=== PATIENT | female | born 1975 | race Caucasian/White ===

== ENCOUNTER 2024-12-21 12:41 | Emergency (ER) | payer OTHER, SELFPAY ==
--- NOTE | ~2024-12-21 | XR_ITS ---
CHEST RADIOGRAPH, PA AND LATERAL CLINICAL HISTORY: chest pain . COMPARISON: None available TECHNIQUE: PA and lateral views of the chest. FINDINGS The cardiomediastinal silhouette is unremarkable. The lungs are clear. Visualized osseous structures and soft tissues are unremarkable. IMPRESSION: No focal infiltrate or effusion. Reviewed, dictated and finalized at location A.
[2024-12-21 12:44] VITALS: BP 147/87; PULSE 91; RESP 18; TEMP 36.4; O2SAT 100
--- NOTE | 2024-12-21 12:48 | ECG_ITS ---
Test Date: 2024-12-21 13:13:04 Measurements Intervals [place] Rate: 77 P: 80 [place]: 153 QRS: 54 QRSD: 70 T: 75 QT: 367 QTc: 416 Interpretive Statements SINUS RHYTHM POSSIBLE LEFT ATRIAL ENLARGEMENT CANNOT R/O SEPTAL INFARCT, AGE INDETERMINATE BORDERLINE ST ABNORMALITY- INFERIOR LEADS ABNORMAL ECG No previous ECG available for comparison Electronically Signed On 12-21-2024 13:13:57 CDT by Donald Dior D.O.
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
--- OUTSIDE RECORDS SUMMARY | 2024-12-21 13:31 | XMS_ITS | Referral Summary ---
Author Organization [facility] Address [address] [place] [address] Care Team Providers Care Eight Arm Operator Name Role Phone No, Physician Primary Care Provider [phone] Allergies Active Allergy Reactions Criticality Noted Date Comments Cyclobenzaprine Quetiapine Medications acetaminophen-c odeine (TYLENOL with CODEINE #3) 300-30 mg per tablet Take 1-2 tablets by mouth every 4 (four) hours as needed for pain (1 tablet for mild to moderate pain or 2 tablets for severe pain). 20 tablet 11/19/2017 Active methocarbamol (ROBAXIN) 500 mg tablet Take 1 tablet (500 mg total) by mouth 3 (three) times a day. 30 tablet 11/24/2017 Active naproxen (ANAPROX DS) 550 mg tablet Take 1 tablet (550 mg total) by mouth 2 (two) times a day with meals 21 tablet 12/24/2020 Active predniSONE (DELTASONE) 10 mg tablet Take 2 tablets (20 mg) by mouth daily 10 tablet 12/24/2020 Active ibuprofen (ADVIL,MOTRIN) 600 mg tablet Take 1 tablet (600 mg total) by mouth every 6 (six) hours as needed for pain 20 tablet 08/16/2024 Active Active Problems Problem Noted Date Diagnosed Date Tendinitis of right forearm 12/24/2020 Social History Tobacco Use Types Packs/Day Years Used Date Smoking Tobacco: Every Day Cigarettes Smokeless Tobacco: Never Tobacco Cessation:Ready to Q uit: Not Asked; Counseling Given: Not Answered Alcohol Use Standard Drinks/Week Comments No 0 (1 standard drink = 0.6 oz pur e alcohol) Personal Safety Answer Date Recorded Have you ever been in or are you currently in a harmful physical or emotional relationship or is someone making you feel afraid or unsafe? 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 Gender Identity Not on file Sexual Orientation Not on file Last Filed Vital Signs Vital Sign Reading Time Taken Comments Blood Pressure 141/74 08/16/2024 11:55 AM BLENDING LINE ATTENDANT Pulse 92 08/16/2024 11:55 AM BLENDING LINE ATTENDANT Temperature 36.9 C (98.4 F) 12/24/2020 7:48 PM CDT Respiratory Rate 16 08/16/2024 11:55 AM BLENDING LINE ATTENDANT Oxygen Saturation 100% 08/16/2024 11:55 AM BLENDING LINE ATTENDANT Inhaled Oxygen Concentration - - Weight 54.4 kg (120 lb) 12/24/2020 7:48 PM CDT Height 180.3 cm (5' 11 ) 12/24/2020 7:48 PM CDT Body Mass Index 16.74 12/24/2020 7:48 PM CDT Plan of Treatment Not on file Insurance [facility] Care Teams Eight Arm Operator Relationship Specialty Start Date End Date No, Physician PCP - General 08/16/24
--- OUTSIDE RECORDS SUMMARY | 2024-12-21 13:31 | XMS_ITS | Clinical Summary ---
Author Organization [facility] Address [address] [place] [address] Care Team Providers Care Campaign Management Senior Manager Name Role Phone No, Physician Primary Care Provider [phone] Allergies Active Allergy Reactions Criticality Noted Date [...] Diagnosed Date Tendinitis of right forearm 12/24/2020 Surgical History Surgery Date Site/Laterality Comments OTHER SURGICAL HISTORY head surgery Medical History Medical History Date Comments Arthritis Arthritis; Comme nts: [facility] 11/20/2015 - Asthma Asthma; Comments : [facility] 11/20/2015 - Social History Tobacco Use Types Packs/Day Years [...] on file Legal Sex Female 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 Gender Identity Not on file Sexual Orientation Not on file Obstetrics History Last Filed Vital Signs Vital Sign Reading Time Taken Comments Blood Pressure 141/74 08/16/2024 11:55 AM 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 Pulse 92 08/16/2024 11:55 AM 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 Temperature 36.9 C (98.4 F) 12/24/2020 7:48 PM CDT Respiratory Rate 16 08/16/2024 11:55 AM 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 Oxygen Saturation 100% 08/16/2024 11:55 AM 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 Inhaled Oxygen Concentration - - Weight 54.4 kg (120 lb) 12/24/2020 7:48 PM CDT Height 180.3 cm (5' 11 ) 12/24/2020 7:48 PM CDT Body Mass Index 16.74 12/24/2020 7:48 PM CDT Plan of Treatment Health Maintenance Due Date Last Done Comments Breast Cancer Screening-Mammogram 1977 Cervical Cancer Screening 1977 Colon Cancer Screening-Colonoscopy 1977 Depression Screening 1977 Hepatitis C Screening 1977 Hepatitis B Screening 1995 Regular Well Visit/Exam 18-64 1995 Pneumococcal vaccine <65 (1 of 2 - PCV) 1996 DTaP/Tdap/Td Vaccine (1 - Tdap) 09/09/2008 9 Influenza Vaccine (#1) [address] [facility] Care Teams Campaign Management Senior Manager Relationship Specialty Start Date End Date No, Physician PCP - General 08/16/24
--- OUTSIDE RECORDS SUMMARY | 2024-12-21 13:31 | XMS_ITS | Encounter Summary ---
Author Organization [facility] Address [address] [place] [address] Care Team Providers Care Cascade Operator Name Role Phone No, Physician Primary Care Provider [phone] Encounter Details Date Type Department Care Team (Late st Contact Info) Description 08/19/2024 Documentation [facility] Case Management [address] [place] [address] Cherelle Simon Social History Tobacco Use Types Packs/Day Years Used Date Smoking Tobacco: Every Day Cigarettes Smokeless Tobacco: Never Alcohol Use Standard Drinks/Week Comments No 0 [...] on file Legal Sex Female 1:06 AM SMART ENERGY SPECIALIST Gender Identity Not on file Sexual Orientation Not on file documented as of this encounter Miscellaneous Notes * Plan of Care - Cherelle Simon - 08/19/2024 11:55 AM CST CRC followed up with patient after ED visit. Patient could not be reached. Cherelle Simon Community Membership Coordinator [facility] [address] T ENERGY SPECIALIST documented in this encounter Plan of Treatment Not on file documented as of this encounter Visit Diagnoses Not on filedocumented in this encounter Care Teams Cascade Operator Relationship Specialty Start Date End Date No, Physician PCP - General 08/16/24 documented as of this encounter
--- OUTSIDE RECORDS SUMMARY | 2024-12-21 13:31 | XMS_ITS | Clinical Summary ---
Author Organization [facility] Address [address] [place] [address] Care Team Providers Care Solutions Architect Name Role Phone Unavailable Primary Care Provider Unavailabl e Social History Tobacco Use Types Packs/Day Years Used Date Smoking Tobacco: Never Assessed Comments Unknown Sex and Gender Information Value Date Recorded Sex Assigned at Not on file Legal Sex Female 12:55 PM CDT Gender Identity Not on file Sexual Orientation Not on file Last Filed Vital Signs Vital Sign Reading Time Taken Comments Blood Pressure 110/60 06/11/2017 2:41 PM CDT Pulse 76 06/11/2017 2:41 PM CDT Temperature - - Respiratory Rate - - Oxygen Saturation - - Inhaled Oxygen Concentration - - Weight 50.8 kg (112 lb) 06/11/2017 2:41 PM CDT Height 180.3 cm (5' 11 ) 06/11/2017 2:41 PM CDT Body Mass Index 15.62 06/11/2017 2:41 PM CDT Plan of Treatment Health Maintenance Due Date Last Done Comments Cervical Cancer Screening Pa p Smear (Age 30 to 64) Every 3 Years 1977 Colorectal Cancer Screening Colonoscopy (10 Years) 1977 Annual Physical 1980 Hepatitis C 1995 DTaP, Tdap and Td Vaccines ( 1 - Tdap) 1996 Hepatitis B Vaccines (1 of 3 - 19+ 3-dose series) 1996 Cervical Cancer Screening Pa p with HPV Testing (Age 30 to 64) Every 5 Years 2007 Cervical Cancer Screening with HPV 2007 Mammogram Screening 2017 COVID-19 Vaccine ( - 2023-2 5 season) 2024 Meningococcal B Vaccine Aged Out No l onger eligible based on patient's age to complete this topic Meningococcal Vaccine Aged Out No hermila miguelina eligible based on patient's age to complete this topic Pneumococcal Vaccine: Pediat rics (0 to 5 Years) and At-Risk Patients (6 to 49 Years) Aged Out No longer eligible b ased on patient's age to complete this topic RSV Immunizations Under 20 Months Aged Out No longer eligible based on patient's age to complete this topic
[2024-12-21 14:40] LABS: Basophils Percent Auto 0.5 % (0.2-1.2); Eosinophils Absolute Auto 0.1 K/mm3 (0-0.3); Eosinophils Percent Auto 1.7 % (0-4.4); Hemoglobin 10.4 g/dL (12.0-15.0); Immature Granulocyte Absolute 0.02 K/mm3 (0.00-0.031); Immature Granulocyte Percent A 0.2 % (0-0.5); Lymphocytes Absolute Auto 1.98 K/mm3 (0.9-3.2); Lymphocytes Percent Auto 24.2 % (18.3-44.2); Mean Corpuscular HGB Conc 31.5 g/dl (32-36); Mean Corpuscular Hemoglobin 25.1 pg (26-34); Mean Corpuscular Volume 79.5 fl (80-100); Mean Platelet Volume 8.9 fl (7.4-10.4); Monocytes Absolute Auto 0.7 K/mm3 (0.1-0.6); Monocytes Percent Auto 8.1 % (2.6-8.5); Neutrophils Absolute Auto 5.4 K/mm3 (1.3-6.7); Neutrophils Percent Auto 65.3 % (45.5-73.1); Platelet Count Result 302 k/mm3 (150-375); Red Blood Count 4.15 M/mm3 (4.2-5.4); White Blood Count 8.2 K/mm3 (4.5-10.0)
[2024-12-21 14:49] LABS: Alanine Aminotransferase 21 U/L (6-35); Albumin Level 4.5 g/dL (3.5-5.1); Alkaline Phosphatase 51 U/L (38-126); Anion Gap 11 mmol/L (4-12); Aspartate Amino Transferase 29 U/L (14-36); Bilirubin,Total 0.3 mg/dL (0.2-1.3); Blood Urea Nitrogen 26 mg/dL (7-17); Calcium 9.2 mg/dL (8.4-10.2); Carbon Dioxide 22 mmol/L (22-30); Chloride 105 mmol/L (98-107); Estimated CRCL calculation 58 ml/min; Estimated Glomerular Filt Rate > 60; Glucose 81 mg/dL (65-110); Lipase 87 U/L (23-300); Potassium 4.4 mmol/L (3.4-5.0); Sodium 138 mmol/L (137-145)
--- NOTE | 2024-12-21 14:57 | ED.GENADULT ---
HPI - General Adult General Chief complaint: Unspecified Stated complaint: Chest Pain and Dental infection Time Seen by Provider: 12/21/24 13:58 History of Present Illness HPI narrative: Patient states that she has been having bad dental infections on and off now for a year, she has been trying to get in to see her dentist but she missed her last appointment and now scheduled for 6 months out, she keeps getting these infection, and also she will get ear infections too. She has also concerned over last 3 weeks she has had several episodes of chest pain. None currently. Related Data Allergies Allergy/AdvReac Type Severity Reaction Status Date / Time cyclobenzaprine Allergy Intermediate Hives Verified 12/21/24 15:10 Review of Systems Review of Systems: All systems reviewed & are unremarkable except as noted in HPI and below Exam Narrative: EXAMINATION OF ORGAN SYSTEMS/BODY AREAS: Constitutional: Vital signs per nursing GENERAL: Appears slightly anxious HEAD: Normal with no signs of head trauma. EYES: EOMI, conjunctiva normal ENT: Very poor dentition with multiple broken teeth with caries upper jaw. Bilateral bulging TMs LUNGS: Nonlabored breathing. HEART: [Regular rate and rhythm] ABD: [Soft], [nontender to palpation] EXT: Normal range of motion SKIN: [No rashes or lesions.] NEURO: [Alert and oriented x 3. No gross focal sensory or strength deficits.] PSYCH: Normal affect Course Vital Signs Vital signs: Vital Signs Temperature 97.6 F 12/21/24 12:44 Pulse Rate 91 12/21/24 12:44 Respiratory Rate 18 12/21/24 12:44 Blood Pressure 147/87 H 12/21/24 12:44 Pulse Oximetry 100 12/21/24 12:44 Oxygen Delivery Room Air 12/21/24 12:44 Temperature 97.6 F 12/21/24 12:44 Pulse Rate 75 12/21/24 15:38 Respiratory Rate 16 12/21/24 15:38 Blood Pressure 136/93 H 12/21/24 15:38 Pulse Oximetry 100 12/21/24 15:38 Oxygen Delivery Room Air 12/21/24 12:44 Medical Decision Making [facility] Narrative Medical decision making narrative: Patient presents here for ear pain, dental pain, and intermittent chest pain but not currently. She is very well-appearing here, exam showing multiple dental caries and bulging TM, for which I will start her on antibiotics. Cardiac workup performed which was normal, including needed troponin, EKG on my independent interpretation shows normal sinus rhythm rate 77, AK 153, QRS 70, QTC 416, normal axis, no significant ST elevations or depressions or signs of acute ischemia or arrhythmia. Patient agreeable to outpatient management, follow-up to dentist, and taking antibiotics as prescribed with return precautions. Vital Signs Vital Signs: Vital Signs Temperature 97.6 F 12/21/24 12:44 Pulse Rate 91 12/21/24 12:44 Respiratory Rate 18 12/21/24 12:44 Blood Pressure 147/87 H 12/21/24 12:44 Pulse Oximetry 100 12/21/24 12:44 Oxygen Delivery Room Air 12/21/24 12:44 Temperature 97.6 F 12/21/24 12:44 Pulse Rate 75 12/21/24 15:38 Respiratory Rate 16 12/21/24 15:38 Blood Pressure 136/93 H 12/21/24 15:38 Pulse Oximetry 100 12/21/24 15:38 Oxygen Delivery Room Air 12/21/24 12:44 Lab Data 12/21/24 14:32 12/21/24 14:32 Labs: Lab Results 12/21/24 Range/Units 14:32 WBC 8.2 (4.5-10.0) K/mm3 RBC 4.15 L (4.2-5.4) M/mm3 Hgb 10.4 L (12.0-15.0) g/dL Hct 33.0 L (37.0-47.0) % MCV 79.5 L (80-100) fl MCH 25.1 L (26-34) pg MCHC 31.5 L (32-36) g/dl RDW 18.0 H (11.5-14.5) % Plt Count 302 (150-375) k/mm3 MPV 8.9 (7.4-10.4) fl Immature Gran % (Auto) 0.2 (0-0.5) % Neut % (Auto) 65.3 (45.5-73.1) % Lymph % (Auto) 24.2 (18.3-44.2) % [place] % (Auto) 8.1 (2.6-8.5) % Eos % (Auto) 1.7 (0-4.4) % Baso % (Auto) 0.5 (0.2-1.2) % Lymph # (Auto) 1.98 (0.9-3.2) K/mm3 [place] # (Auto) 0.7 H (0.1-0.6) K/mm3 Eos # (Auto) 0.1 (0-0.3) K/mm3 Baso # (Auto) 0.0 (0.0-0.1) K/mm3 Abs Immat Gran (auto) 0.02 (0.00-0.031) K/mm3 Absolute Neuts (auto) 5.4 (1.3-6.7) K/mm3 Absolute Nucleated RBC 0.000 (0.0-0.012) K/mm3 Nucleated RBC % 0.0 (0.0-0.2) % PT 13.0 (11.1-14.7) Seconds INR 1.0 APTT 26.6 (22.3-36.8) Seconds Sodium 138 (137-145) mmol/L Potassium 4.4 (3.4-5.0) mmol/L Chloride 105 (98-107) mmol/L Carbon Dioxide 22 (22-30) mmol/L Anion Gap 11 (4-12) mmol/L BUN 26 H (7-17) mg/dL Creatinine 0.83 (0.7-1.0) mg/dL Estim Creat Clear Calc 58 ml/min Estimated GFR > 60 (59 - ) Glucose 81 (65-110) mg/dL Calcium 9.2 (8.4-10.2) mg/dL Total Bilirubin 0.3 (0.2-1.3) mg/dL AST 29 (14-36) U/L ALT 21 (6-35) U/L Alkaline Phosphatase 51 (38-126) U/L Troponin I < 0.012 (0.000-0.034) ng/mL Total Protein 8.0 (6.3-8.2) g/dL Albumin 4.5 (3.5-5.1) g/dL Lipase 87 (23-300) U/L Discharge Plan Discharge Clinical Impression: Dental infection, Acute otitis media Patient Disposition: Home Condition: Stable Instructions: Antibiotic Form, Dental Abscess (ED), Ear Infection (ED) Additional Instructions: Please follow-up with your dentist and with ENT, take the medications as prescribed, and can always come back few worse. Patient Language: Icelandic Prescriptions: New amoxicillin-pot clavulanate 875-125 mg tablet 1 tablet PO Q12H Qty: 14 0RF Follow-up/Referrals: Christopher Villatoro MD [Physician] - 2 Days UNKNOWN,DOCTOR [Primary Care Provider] -
[2024-12-21 15:01] LABS: Troponin I < 0.012 ng/mL (0.000-0.034)
[2024-12-21 15:02] LABS: Partial Thromboplastin Time 26.6 Seconds (22.3-36.8)
[2024-12-21 15:10] VITALS: BP 145/97; PULSE 70; RESP 16; O2SAT 100
[2024-12-21] MEDS: AMOXICILLIN/CLAVULANATE K 875-125 MG TAB 1 TABLET PO (15:14)
[2024-12-21] MEDS: TETRACAINE HCL 0.5% OPHTH SOLN 4 ML BTL 1 DROP XX (15:15)
--- OUTSIDE RECORDS SUMMARY | 2024-12-21 15:20 | XMS_ITS | Encounter Summary ---
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 Patient could not be reached. Cherelle Simon [facility] Rn [facility] FINISHER documented in this encounter Plan of Treatment Not on file documented as of this encounter Visit Diagnoses Not on filedocumented in this encounter Care Teams Tree Tapping Laborer Relationship Specialty Start Date End Date No, Physician PCP - General 08/16/24 documented as of this encounter
--- OUTSIDE RECORDS SUMMARY | 2024-12-21 15:20 | XMS_ITS | Clinical Summary ---
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 Gender Identity Not on file Sexual Orientation Not on file Obstetrics History Last Filed Vital Signs Vital Sign Reading Time Taken Comments Blood Pressure 141/74 08/16/2024 11:55 AM PRAWN TRAWLER HAND Pulse 92 08/16/2024 11:55 AM PRAWN TRAWLER HAND Temperature 36.9 C (98.4 F) 12/24/2020 7:48 PM CDT Respiratory Rate 16 08/16/2024 11:55 AM PRAWN TRAWLER HAND Oxygen Saturation 100% 08/16/2024 11:55 AM PRAWN TRAWLER HAND Inhaled Oxygen Concentration - - Weight 54.4 [...] 09/09/2008 9 Influenza Vaccine (#1) 2024 Insurance [facility] Care Teams Riding Silks Custodian Relationship Specialty Start Date End Date No, Physician PCP - General 08/16/24
--- OUTSIDE RECORDS SUMMARY | 2024-12-21 15:20 | XMS_ITS | Referral Summary ---
Author Organization [facility] Address [address] [place] [address] Care Team Providers Care Retail Account Manager Name Role Phone No, Physician Primary Care Provider [phone] Allergies Active Allergy Reactions Criticality Noted Date [...] on file Legal Sex Female 1:06 AM HOUSING RELOCATION Gender Identity Not on file Sexual Orientation Not on file Last Filed Vital Signs Vital Sign Reading Time Taken Comments Blood Pressure 141/74 08/16/2024 11:55 AM HOUSING RELOCATION Pulse 92 08/16/2024 11:55 AM HOUSING RELOCATION Temperature 36.9 C (98.4 F) 12/24/2020 7:48 PM CDT Respiratory Rate 16 08/16/2024 11:55 AM HOUSING RELOCATION Oxygen Saturation 100% 08/16/2024 11:55 AM HOUSING RELOCATION Inhaled Oxygen Concentration - - Weight 54.4 kg (120 lb) 12/24/2020 7:48 PM CDT Height 180.3 cm (5' 11 ) 12/24/2020 7:48 PM CDT Body Mass Index 16.74 12/24/2020 7:48 PM CDT Plan of Treatment Not on file Insurance [facility] Care Teams Retail Account Manager Relationship Specialty Start Date End Date No, Physician PCP - General 08/16/24
--- OUTSIDE RECORDS SUMMARY | 2024-12-21 15:20 | XMS_ITS | Clinical Summary ---
Author Organization [facility] Address [address], [address] [address] Phone Care Team Providers Care Bull Chain Operator Name Role Phone Elias Rylandcassandra ALVARADO Primary Care Provider Allergies Active Allergy Reactions Criticality Noted Date Comments Codeine Itching 05/01/2017 Cyclobenzaprine Itching 11/27/2010 Medications albuterol 108 (90 Base) MCG/ACT Aerosol Solution take 2 Puffs by inhalation every 4 hours as needed for Wheezing or Cough. 18 g 3 Active venlafaxine (EFFEXOR-XR) 37.5 MG CAPSULE SR 24 HRIndications:C urrent mild episode of major depressive disorder without prior episode (HCC) TAKE 1 CAPSULE BY MOUTH EVERY DAY 90 Capsule 3 Active Family History Medical History Relation Name Comments Cancer Maternal Aunt Cancer Maternal Grandmother Heart Disease Maternal Grandmother Cancer Paternal Grandmother Heart Disease Paternal Grandmother Relation Name Status Comments Maternal Aunt Maternal Grandmother Paternal Grandmother Social History Tobacco Use Types Packs/Day Years Used Date Smoking Tobacco: Every Day Cigarettes Smokeless Tobacco: Never Tobacco Cessation:Ready to Q uit: No; Counseling Given: No Alcohol Use Standard Drinks/Week Comments No 0 (1 standard drink = 0.6 oz pur e alcohol) Sexually Active Control Partners Comments Yes None Male Comments No Sex and Gender Information Value Date Recorded Sex Assigned at Not on file Legal Sex Female 12:10 PM CDT Gender Identity Not on file Sexual Orientation Not on file Last Filed Vital Signs Vital Sign Reading Time Taken Comments Blood Pressure 108/82 04/10/2023 1:52 PM CDT Pulse 87 04/10/2023 1:52 PM CDT Temperature 36.7 C (98.1 F) 04/10/2023 1:52 PM CDT Respiratory Rate 20 04/10/2023 1:52 PM CDT Oxygen Saturation 90% 04/10/2023 1:52 PM CDT Inhaled Oxygen Concentration - - Weight 46.4 kg (102 lb 6.4 oz) 04/10/2023 1:52 P M CDT Height 180.3 cm (5' 11 ) 04/10/2023 1:52 PM CDT Body Mass Index 14.28 04/10/2023 1:52 PM CDT Plan of Treatment Health Maintenance Due Date Last Done Comments Hepatitis C Virus (HCV) Screening 1977 Mammogram 1977 TdaP Immunization 1977 Hepatitis B Immunization (1 of 3 - 19+ 3-dose series) 1996 Pneumococcal Immunization Co mbined (1 of 2 - PCV) 1996 Pap Smear 1998 Cervical Cancer Screening (CCS) 2007 HPV/Cotest 2007 Discussion re Starting/Frequ ency of Mammograms 2017 Colonoscopy 2022 Colorectal Cancer Screening 2022 Influenza Immunization (#1) 2024 SARS-COV-2 Immunization ( season) 2024 Respiratory Syncytial Virus (RSV) Immunization (Adult) (1 - 1-dose 75+ series) 2052 Meningococcal Immunization (ACWY) Aged Out No longer eligible based on patient's age to complete this topic Rotavirus Immunization Aged Out No lo nger eligible based on patient's age to complete this topic Insurance MEDICAID [employer] Care Teams Bull Chain Operator Relationship Specialty Start Date End Date Ryland Griffin, PAC [address] [place] [address] PCP - General Physician Supervisor Printing Shop 04/10/23
[2024-12-21 15:38] VITALS: BP 136/93; PULSE 75; RESP 16; O2SAT 100
== END 2024-12-21 15:40 | disposition home or self-care (01) ==
PROVIDERS: Emergency Medicine; Emergency Provider Emergency Medicine
DX: K04.7 Periapical abscess without sinus (principal); H66.93 Otitis media, unspecified, bilateral; R94.31 Abnormal electrocardiogram [ECG] [EKG]
CPT/HCPCS: 36415; 71046; 80053; 83690; 84484; 85025; 85610; 85730; 93005; 99284; A9270